=== PATIENT | female | born 1990 | race Caucasian/White ===

== ENCOUNTER 2020-07-25 08:51 | Outpatient (CLI) | payer OTHER ==
[2020-07-25 16:20] LABS: SARS-CoV-2 MS2 Positive; SARS-CoV-2 N Gene Negative; SARS-CoV-2 S Gene Negative; SARS-CoV-2 by NAA Not Detected (NotDetected); SARS-CoV-2 orf1ab Negative
== END 2020-07-25 08:52 | disposition home or self-care (01) ==
LOC: LABBT 08:51
PROVIDERS: ATTEND Obstetrics & Gynecology
DX: Z20.828 Contact with and (suspected) exposure to other viral communicable diseases (principal)
CPT/HCPCS: 87635; U0003

== ENCOUNTER 2020-07-28 05:12 | Inpatient (IN) | payer OTHER ==
[2020-07-28 05:52] VITALS: BMI 36.8
[2020-07-28 06:02] LABS: Hemoglobin 12.7 g/dL (12.0-16.0); Mean Corpuscular HGB CONC 33.9 g/dL (32.0-36.0); Mean Corpuscular Hemoglobin 28.9 pg (27.0-31.0); Mean Corpuscular Volume 85.3 fL (78.0-98.0); Platelet Count 179 thou/uL (130-400); Red Blood Cell (RBC) Count 4.39 mill/uL (4.20-5.40); White Blood Cell (WBC) Count 10.5 thou/uL (4.8-10.8)
[2020-07-28] MEDS ORDERED: hydrALAZINE 20 MG/ML VIAL SLOW IVP PRN ×2 (06:15→10:59)
[2020-07-28] MEDS ORDERED: Misoprostol 200 MCG TAB RC SCH (06:15)
[2020-07-28] MEDS ORDERED: Ondansetron PF 4 MG/2 ML Vial IVP PRN ×3 (06:15→10:59)
[2020-07-28] MEDS ORDERED: Promethazine HCl 25 MG/ML VIAL IM PRN ×2 (06:15→08:59)
[2020-07-28] MEDS ORDERED: Lactated Ringer's 1,000 ML IV SCH (06:15)
[2020-07-28] MEDS ORDERED: Clindamycin/D5W 900 MG in Premix Bag 1 BAG IVPB SCH (06:30)
[2020-07-28] MEDS ORDERED: Gentamicin Sulfate 120 MG in Premix Bag 1 BAG IVPB SCH (06:30)
[2020-07-28 06:43] LABS: Syphilis Antibody Nonreactive (Nonreactive); Syphilis Antibody Index 0.02 S/CO (<1.00 Non-Reactive)
[2020-07-28 06:44] LABS: HBSAg Index 0.15 S/CO (0-0.99); Hep B Surf Ag Non-Reactive S/CO (NonReactive)
[2020-07-28] MEDS ORDERED: Scopolamine 1.5 mg/72 hour Patch ONE (07:15)
[2020-07-28] MEDS ORDERED: Famotidine/PF 20 mg/2ml Vial ONE (07:16)
[2020-07-28] MEDS ORDERED: Ondansetron PF 4 MG/2 ML Vial ONE (07:16)
[2020-07-28] MEDS ORDERED: Metoclopramide HCl 10 MG/2 ML VIAL ONE (07:16)
[2020-07-28] MEDS ORDERED: Oxytocin 10 UNITS/ML VIAL ONE ×2 (07:25→08:35)
[2020-07-28] MEDS ORDERED: Morphine PF 10 MG/10 ML VIAL ONE (07:26)
[2020-07-28] MEDS ORDERED: ePHEDrine 50 MG/ML VIAL ONE (07:50)
[2020-07-28] MEDS ORDERED: Meperidine HCl/PF 25 MG/ML VIAL ONE ×2 (08:12→08:50)
[2020-07-28] MEDS ORDERED: Misoprostol 200 MCG TAB ONE ×2 (08:23→08:24)
[2020-07-28] MEDS ORDERED: HYDROmorphone 2 MG/ML VIAL SLOW IVP PRN (08:59)
[2020-07-28] MEDS ORDERED: Promethazine HCl 25 MG SUPP PR PRN (08:59)
[2020-07-28] MEDS ORDERED: L&D-Morphine 4 MG/ML VIAL SLOW IVP PRN (08:59)
[2020-07-28] MEDS ORDERED: Meperidine HCl/PF 25 MG/ML VIAL SLOW IVP PRN (08:59)
[2020-07-28] MEDS ORDERED: Naloxone HCl 0.4 mg/ml Vial IV PRN (08:59)
[2020-07-28] MEDS ORDERED: Naloxone HCl 0.4 mg/ml Vial IVP PRN ×2 (08:59)
[2020-07-28] MEDS ORDERED: Ondansetron HCl/PF 4 MG/2 ML Vial IVP PRN (08:59)
[2020-07-28] MEDS ORDERED: diphenhydrAMINE 50 MG/ML VIAL IVP PRN (08:59)
[2020-07-28] MEDS ORDERED: Communication Order-Pharmacy FS SCH (09:00)
[2020-07-28] MEDS ORDERED: Ketorolac Tromethamine 30 MG/ML VIAL IVP SCH (09:00)
[2020-07-28] MEDS ORDERED: Bisacodyl 10 MG SUPP PR PRN (10:59)
[2020-07-28] MEDS ORDERED: diphenhydrAMINE 25 MG CAP PO PRN (10:59)
[2020-07-28] MEDS ORDERED: Lanolin Ointment 7 GM TUBE TOP PRN (10:59)
[2020-07-28] MEDS ORDERED: NS / Oxytocin 40 units/1000ml 1,000 ML IV SCH (11:00)
[2020-07-28] MEDS ORDERED: Misoprostol 100 MCG TAB PO SCH (11:30)
[2020-07-28] MEDS ORDERED: Acetaminophen 325 MG TAB PO PRN (11:45)
[2020-07-28] MEDS ORDERED: Simethicone Chewable 80 MG TAB PO PRN (11:45)
--- NOTE | 2020-07-28 12:58 | OP ---
DATE OF PROCEDURE: 07/28/2020 PROCEDURE DONE: Primary low-transverse section via Pfannenstiel incision. ENROLLED AGENT: Dr. Blane Graham. ANESTHESIOLOGIST: Dr. Banda. ANESTHESIA USED: Spinal. ESTIMATED BLOOD LOSS: Approximately 900 mL. QUANTITATIVE BLOOD LOSS: 925 mL. URINE OUTPUT: 700 mL of clear yellow urine. IV FLUIDS: 1100 mL of lactated Ringer's. PREOPERATIVE ANTIBIOTICS: Included gentamicin and clindamycin per protocol as the patient is allergic to amoxicillin. PREOPERATIVE DIAGNOSES: 1. 38-week intrauterine . 2. Prior myomectomy and uterine scar at the fundus, advised for delivery. POSTOPERATIVE DIAGNOSES: 1. 38-week intrauterine . 2. Prior myomectomy and uterine scar at the fundus, advised for delivery. FINDINGS: Tubes and ovaries appeared grossly normal, however, are not completely visualized due to our inability to exteriorize the uterus for uterine incision repair. The uterus itself was quite globular and was not able to be delivered through the incision. I did palpate the ovaries and tubes as well as the uterus and felt no distinct fibroids or specific abnormalities of the fundus. There was no specific scarring of the uterus attached to the abdominal wall or any other structures that I was able to feel. INDICATIONS: This is a 1, para 0 female with intrauterine at 38 and 0/7th weeks presenting to Labor and Delivery this morning for a scheduled primary low-transverse section due to prior history of large myomectomy removal and uterine scar through the entire wall of the uterus. Risks, benefits, indications, and alternatives reviewed with her, and informed consent has been obtained. The patient desires to proceed as planned and questions are answered to her satisfaction. PROCEDURE IN DETAIL: The patient was taken to the operating room, where she was placed in the seated position and given spinal anesthesia. She was then placed in the supine position with a leftward tilt and prepped and draped in usual sterile fashion. Preprocedure time-out was performed. Anesthesia was noted to be adequate and her was brought into the room. The skin incision was made approximately 3 cm superior to the symphysis pubis. This incision was extended laterally and deeply through to the fascia. Small bleeders were fulgurated using the Bovie. The fascia was then incised transversely and dissected free from the underlying rectus muscles. The rectus muscles were then in the midline. The peritoneum was entered sharply with good visualization of the bladder. The incision was extended superiorly and inferiorly. The bladder blade was inserted, and the vesicouterine peritoneum was identified, tented up, and entered sharply. This incision extended laterally and the bladder flap was created digitally. The bladder blade was then reinserted. The uterus at the lower uterine segment was noted to be relatively thick. The incision is in place in the lower segment; however, there is a significant amount of relatively rapid bleeding. The uterus was entered bluntly as well as the amniotic membranes. The incision was extended bluntly. The infant head was then delivered atraumatically. The head was relatively high within the uterus as well and a vacuum was necessary and was placed on the vertex. With a gentle single pull, the head was delivered along with fundal pressure. The vacuum was removed and the body was then delivered. Nose and mouth were bulb suctioned. Cord was clamped and cut after 1 minute. Crying vigorous infant was handed off to waiting pediatric staff. Cord blood was taken. Tension was then applied on the cord while massaging the uterus and the placenta was removed and handed off. The uterus was attempted to be exteriorized and we were unable to do this. The uterus itself then was cleaned and wiped free with a dry lap. The uterine incision was then repaired using 0 Monocryl in a running locked fashion. Two sutures were used, each beginning at the lateralmost aspect of the incision and meeting near the midline. The anchors of suture on each side are not cut and are used to retract the uterus in order to visualize the incision and ensure there is hemostasis. The posterior aspect of the bladder flap was inspected and noted to be hemostatic. The lower uterine segment was noted to be hemostatic. All sutures along the suture line of the uterine segment were noted to be hemostatic. The gutters were cleared of all clots and debris. Uterus, ovaries, and tubes were palpated and noted to be as described above. The peritoneum was then reapproximated using 2-0 Monocryl in a running fashion. The rectus muscles as well as the dorsal aspect of the fascia inspected and small bleeders were fulgurated using a Bovie. The fascia was then reapproximated using 2-0 Vicryl in a running fashion. Two sutures are used each beginning at the lateralmost aspect of the incision and meeting along the midline. Subcuticular tissues then profusely irrigated with warm normal saline. Small bleeders were fulgurated using the Bovie. The subcuticular fat was then reapproximated using 2-0 plain gut in a running fashion. The skin was then closed using 3-0 Monocryl on a Nithin needle in a subcuticular stitch. Dermabond was placed. Sponge, lap, needle, and instrument counts were correct x4. Bandages were placed and the patient was placed with the legs open. The uterus was massaged and the vagina was inspected and noted to have approximately 10 to 20 cc of blood. Cytotec 400 mcg was then placed in the rectum. Bandage was then placed. The patient was replaced in supine position. Postoperative time-out was performed with no abnormalities appreciated. Job ID: [id number]
[2020-07-28] MEDS ORDERED: Adacel (T-DAP) 0.5 ML SYRINGE IM ONE (13:00)
[2020-07-28] MEDS: Ferrous Sulfate 325 MG TAB PO SCH (13:11)
[2020-07-28] MEDS: Lactated Ringer's 1,000 ML IV SCH (14:57)
[2020-07-28] MEDS: Misoprostol 100 MCG TAB PO SCH ×2 (14:57→21:03)
[2020-07-28] MEDS: Ketorolac Tromethamine 30 MG/ML VIAL IVP PRN (18:15)
[2020-07-28] MEDS ORDERED: HYDROcodone/Acetaminophen 5/325 mg Tablet PO PRN ×2 (21:01)
[2020-07-28] MEDS: Docusate Calcium (SURFAK) 240 MG CAP PO SCH (21:03)
[2020-07-29] MEDS ORDERED: Sodium Chloride 0.9% 10 ML ONE ×2 (00:42→06:08)
[2020-07-29] MEDS: Ketorolac Tromethamine 30 MG/ML VIAL IVP PRN ×2 (00:51→06:18)
[2020-07-29] MEDS: Misoprostol 100 MCG TAB PO SCH ×2 (02:46→08:55)
[2020-07-29 06:09] LABS: Mean Corpuscular HGB CONC 34.5 g/dL (32.0-36.0); Mean Corpuscular Hemoglobin 30.4 pg (27.0-31.0); Mean Platelet Volume 8.7 fL (7.4-10.4); Platelet Count 128 thou/uL (130-400); RBC Distribution Width 12.2 % (11.5-14.5); White Blood Cell (WBC) Count 10.6 thou/uL (4.8-10.8)
--- NOTE | 2020-07-29 06:39 | PDOC.PP ---
Post Progress Note Post Day #: 1 PO intake tolerated: yes Ambulation: yes Vital Signs (12 hours) Temp Pulse Resp BP Pulse Ox 07/29/20 00:45 98.2 F 60 16 100/52 L 98 07/28/20 21:00 96 07/28/20 19:56 98.1 F 91 16 93/50 L 96 Weight Weight 103.419 kg - Physical Examination General: NAD Skin: CS incision dry & intact Result Diagrams: 07/29/20 05:43 Additional Labs: Post Labs Hep Bs Antigen Non-Reactive S/CO (NonReactive) 07/28/20 05:46 Blood Type O NEGATIVE 07/28/20 06:07 - Assessment/Plan Doing well
[2020-07-29] MEDS: Lactated Ringer's 1,000 ML IV SCH ×2 (06:44→08:56)
[2020-07-29] MEDS: Ferrous Sulfate 325 MG TAB PO SCH (07:06)
[2020-07-29] MEDS: Prenatal Vitamin 1 TAB PO SCH (08:55)
[2020-07-29] MEDS: Docusate Calcium (SURFAK) 240 MG CAP PO SCH ×2 (08:56→21:56)
[2020-07-29] MEDS: Ibuprofen 800 MG TAB PO SCH ×2 (14:56→21:56)
[2020-07-30] MEDS: Ibuprofen 800 MG TAB PO SCH (05:36)
[2020-07-30] MEDS: Lactated Ringer's 1,000 ML IV SCH (06:33)
--- NOTE | 2020-07-30 06:52 | PDOC.PP ---
Post Progress Note Post Day #: 2 PO intake tolerated: yes Flatus: yes Ambulation: yes Vital Signs (12 hours) Temp Pulse Resp BP Pulse Ox 07/30/20 00:35 98.7 F 86 16 104/52 L 97 07/29/20 20:10 97 07/29/20 19:40 98.5 F 87 16 99/58 L 97 Weight Weight 103.419 kg - Physical Examination General: NAD Abdominal: lochia (normal) Skin: CS incision dry & intact Result Diagrams: 07/29/20 05:43 Additional Labs: Post Labs Hep Bs Antigen Non-Reactive S/CO (NonReactive) 07/28/20 05:46 Blood Type O NEGATIVE 07/28/20 06:07 - Assessment/Plan Wants to go home today
[2020-07-30 08:12] VITALS: BP 115/58; TEMP 98.9
[2020-07-30] MEDS: Docusate Calcium (SURFAK) 240 MG CAP PO SCH (09:14)
[2020-07-30] MEDS: Ferrous Sulfate 325 MG TAB PO SCH (09:14)
[2020-07-30] MEDS: Prenatal Vitamin 1 TAB PO SCH (09:14)
== END 2020-07-30 12:05 | disposition home or self-care (01) | DRG 788 ==
LOC: L&D 05:12 → 3SE 11:40
PROVIDERS: ADMIT Obstetrics & Gynecology; ATTEND Obstetrics & Gynecology
PROC: 10D00Z1 Extraction of Products of Conception, Low, Open Approach (ICD-10-PCS; principal; 2020-07-28)
DX: O34.29 Maternal care due to uterine scar from other previous surgery (principal); N85.8 Other specified noninflammatory disorders of uterus; Z3A.38 38 weeks gestation of pregnancy; Z37.0 Single live birth; Z20.828 Contact with and (suspected) exposure to other viral communicable diseases
CPT/HCPCS: 36415; 51702; 85027; 85461; 86780; 86850; 86870; 86900; 86901; 87340; 90384; 96372; J1580; J1885; J2175; J2270; J2405; J2765; J3490; S0028